=== PATIENT | male | born 1940 | race Caucasian/White ===

== ENCOUNTER → 2016-12-11 | Outpatient (CLI) | payer MEDICARE ==
[~2016-12-11] MED LIST: ALLOPURINOL300 MG PO; AMLO5TAB PO; B-122500 MCG; CARTIA XT300 MG PO; CEFTIN500 MG PO; COREG25 MG PO; DILTIAZEM 24HR300 MG; DOXAZOSIN4 MG PO; FEXOFENADINE60 MG PO; FINASTERIDE5 MG PO; GLIMEPIRIDE 4MG4 MG PO; HYDROCHLOROTHIA25 M1 PO; HYDROCHLOROTHIA50 MG PO; JANUVIA50 MG; KLOR-CON M2020 MEQ PO; LEVAQUIN500 MG PO; LISINOPRIL40 MG PO; LOSARTAN POTAS100 MG; MELOXICAM15 MG PO; METFORMIN ER500 M1 PO; METOPROLOL SUCC50 M1 PO; MONTELUKAST SOD10 MG; NEURONTIN100 MG; PAROXETINE20 MG PO; PRAVASTATIN 20M20 MG PO; PRAVASTATIN40 MG PO; SMZ-TMP 800 MG-1 TAB PO; SPIRONOLACTONE25 M1; ZYRTEC ALLERGY10 MG PO; [UNRECOGNIZED DRUG - OTHER] PO; [UNRECOGNIZED DRUG - REMARK] TP
[2016-12-11 08:44] LABS: BUN 26 mg/dL (7-18)
[2016-12-11 08:46] LABS: GFR (ESTIMATED) 37 ML/MIN (>60)
== END ==
LOC: LAB 07:52
DX: E78.5 Hyperlipidemia, unspecified (principal); E55.9 Vitamin D deficiency, unspecified

== ENCOUNTER → 2017-06-26 | Outpatient (CLI) | payer MEDICARE ==
[2017-06-26 09:52] LABS: URINE BILIRUBIN - DIPSTICK NEGATIVE (NEG); URINE BLOOD 1+ (NEG)
[2017-06-26 10:13] LABS: BUN 25 mg/dL (7-18); URINE SQUAMOUS CELLS OCC #/hpf (OCC)
[2017-06-26 10:15] LABS: GFR (ESTIMATED) 42 ML/MIN (>60)
== END ==
LOC: LAB 07:55
PROVIDERS: Internal Medicine Nephrology
DX: N18.3 Chronic kidney disease, stage 3 (moderate) (principal); N25.81 Secondary hyperparathyroidism of renal origin; R80.9 Proteinuria, unspecified